=== PATIENT | female | born 1995 | race Caucasian/White ===

== ENCOUNTER 2020-05-10 12:36 | Inpatient (IN) | payer BC, MEDICAID ==
[~2020-05-10] VITALS: Ht 172.7 cm; Wt 67.3 kg
[2020-05-10] MEDS: LACTATED RINGERS 1,000 ML IV SCH (22:15)
[2020-05-10 22:30] VITALS: BP 118/70
[2020-05-10] MEDS ORDERED: FENTANYL PF 100 MCG/2ML IVPush PRN (22:30)
[2020-05-10] MEDS ORDERED: OXYTOCIN 30U/ 0.9% NaCL 500ML 500 ML IV ONE (22:30)
[2020-05-10] MEDS ORDERED: D5%-LACTATED RINGERS 1,000 ML IV SCH (22:30)
[2020-05-10] MEDS ORDERED: MISOPROSTOL 25 MCG TABLET VG PRN (22:30)
[2020-05-10] MEDS ORDERED: OXYTOCIN 30U/ 0.9% NaCL 500ML 500 ML IV PRN (22:30)
[2020-05-10] MEDS ORDERED: FENTANYL PF 100 MCG/2ML IV PRN (22:30)
[2020-05-10] MEDS: PENICILLIN GK 2,500,000 UNITS in DEXTROSE 5% 100 ML IVPB SCH (22:30)
[2020-05-10] MEDS ORDERED: TERBUTALINE 1 MG/ML, 1ML SQ PRN (22:30)
[2020-05-10] MEDS ORDERED: PENICILLIN GK 5,000,000 UNITS in DEXTROSE 5% 100 ML IVPB ONE (22:30)
[2020-05-10] MEDS ORDERED: TERBUTALINE 1 MG/ML, 1ML IVPush PRN (22:30)
[2020-05-10] MEDS ORDERED: OXYTOCIN 30U/ 0.9% NaCL 500ML 500 ML ONE (22:45)
[2020-05-10] MEDS ORDERED: CALCIUM CARBONATE 500 MG TAB.CHEW ONE (22:45)
[2020-05-10] MEDS ORDERED: MISOPROSTOL 25 MCG TABLET ONE (22:46)
[2020-05-10] MEDS ORDERED: NEWBORN KIT ONE (22:46)
[2020-05-10] MEDS: CALCIUM CARBONATE 500 MG TAB.CHEW PO PRN (23:02)
[2020-05-10 23:12] LABS: BASOPHILS % (AUTO) 0 % (0-1); EOSINOPHILS % (AUTO) 1 % (1-7); LYMPHOCYTES % (AUTO) 23 % (22-44); MONOCYTES % (AUTO) 10 % (2-9); NEUTROPHILS % (AUTO) 66 % (42-75); PLATELET COUNT 234 x10^3/uL (130-400); RED BLOOD COUNT 3.41 x10^6/uL (3.82-5.3); RED CELL DISTRIBUTION WIDTH 12.5 % (9.6-15.2)
[2020-05-10 23:19] LABS: MD NO
[2020-05-11] MEDS: PENICILLIN GK 2,500,000 UNITS in DEXTROSE 5% 100 ML IVPB SCH ×4 (02:30→17:27)
[2020-05-11] MEDS: CALCIUM CARBONATE 500 MG TAB.CHEW PO PRN ×3 (02:53→19:30)
[2020-05-11] MEDS ORDERED: CALCIUM CARBONATE 500 MG TAB.CHEW ONE ×3 (02:55→19:28)
[2020-05-11] MEDS ORDERED: MISOPROSTOL 25 MCG TABLET ONE (07:51)
[2020-05-11] MEDS ORDERED: MISOPROSTOL 25 MCG TABLET VG PRN (08:00)
[2020-05-11] MEDS ORDERED: LIDOCAINE 1%, 20ML ONE (09:41)
[2020-05-11] MEDS ORDERED: MISOPROSTOL 200 MCG TABLET ONE (09:41)
[2020-05-11] MEDS ORDERED: ONDANSETRON 2MG/ML, 2ML ONE ×2 (13:25→18:39)
[2020-05-11] MEDS: ONDANSETRON 2MG/ML, 2ML IVPush PRN ×2 (13:29→18:41)
[2020-05-11] MEDS ORDERED: FENTANYL PF 100 MCG/2ML ONE ×2 (13:47→14:31)
[2020-05-11] MEDS ORDERED: BUPIVACAINE 0.25% ONE (14:31)
[2020-05-11] MEDS ORDERED: FENTANYL/BUPIV./NS/PF 250 ML EPIDCONT ONE (14:32)
[2020-05-11] MEDS ORDERED: FENTANYL/BUPIV./NS/PF 250 ML EPIDCONT SCH (15:30)
[2020-05-11] MEDS ORDERED: ONDANSETRON 2MG/ML, 2ML IVPush PRN (15:30)
[2020-05-11] MEDS ORDERED: EPHEDRINE 50 MG/ML, 1ML IVPush PRN (15:30)
[2020-05-11] MEDS: LACTATED RINGERS 1,000 ML IV SCH ×2 (15:36→16:00)
[2020-05-11] MEDS ORDERED: LACTATED RINGERS 1,000 ML IVBOLUS PRN (16:00)
[2020-05-11] MEDS ORDERED: OXYTOCIN 30U/ 0.9% NaCL 500ML 500 ML ONE (21:51)
[2020-05-11] MEDS ORDERED: ONDANSETRON 2MG/ML, 2ML IV PRN (22:00)
[2020-05-11] MEDS ORDERED: SIMETHICONE 80 MG CHEW TAB PO PRN (22:00)
[2020-05-11] MEDS: OXYTOCIN 30U/ 0.9% NaCL 500ML 500 ML IV SCH (22:00)
[2020-05-11] MEDS ORDERED: MISOPROSTOL 200 MCG TABLET SL PRN (22:00)
[2020-05-11] MEDS ORDERED: IBUPROFEN 600 MG TABLET ONE ×2 (22:29)
[2020-05-11] MEDS ORDERED: IBUPROFEN 800 MG TABLET ONE (22:33)
[2020-05-11] MEDS: IBUPROFEN 800 MG TABLET PO PRN (22:39)
[2020-05-11] MEDS ORDERED: OXYcodone IR 5MG TABLET ONE (23:32)
[2020-05-11] MEDS: OXYcodone IR 5MG TABLET PO PRN (23:33)
[2020-05-12 00:10] VITALS: BP 127/71
[2020-05-12] MEDS: OXYcodone IR 5MG TABLET PO PRN ×4 (04:04→19:27)
[2020-05-12] MEDS: ACETAMINOPHEN 325 MG TABLET PO PRN ×3 (04:04→18:19)
[2020-05-12 04:20] VITALS: BP 118/74
[2020-05-12 06:47] LABS: BASOPHILS % (AUTO) 0 % (0-1); EOSINOPHILS % (AUTO) 0 % (1-7); LYMPHOCYTES % (AUTO) 13 % (22-44); MEAN CORPUSCULAR HEMOGLOBIN 31.5 pg (27.0-34.8); MEAN CORPUSCULAR HGB CONC 34.4 g/dL (32.4-35.8); MEAN PLATELET VOLUME 9.8 fL (7.4-10.4); MONOCYTES % (AUTO) 10 % (2-9); NEUTROPHILS % (AUTO) 77 % (42-75); PLATELET COUNT 213 x10^3/uL (130-400); RED CELL DISTRIBUTION WIDTH 12.5 % (9.6-15.2)
[2020-05-12 06:50] LABS: MD NO
[2020-05-12 07:39] VITALS: BP 114/67
[2020-05-12] MEDS: OXYTOCIN 30U/ 0.9% NaCL 500ML 500 ML IV SCH ×2 (08:00→18:00)
[2020-05-12] MEDS: FERROUS SULFATE 325 MG TABLET PO SCH ×2 (08:00→17:03)
[2020-05-12] MEDS: LACTATED RINGERS 1,000 ML IV SCH ×2 (08:00)
[2020-05-12] MEDS: DOCUSATE 100 MG CAPSULE PO PRN ×2 (08:01→19:26)
[2020-05-12] MEDS: IBUPROFEN 800 MG TABLET PO PRN ×2 (08:01→19:26)
[2020-05-12] MEDS: PRENATAL VIT/IRON/FA 1 EACH TABLET PO SCH (08:01)
[2020-05-12 12:20] VITALS: BP 118/72
[2020-05-12 15:50] VITALS: BP 121/78
[2020-05-12 19:56] VITALS: BP 114/68
[2020-05-13] MEDS: OXYcodone IR 5MG TABLET PO PRN ×4 (01:38→17:08)
[2020-05-13] MEDS: ACETAMINOPHEN 325 MG TABLET PO PRN ×4 (01:38→17:09)
[2020-05-13] MEDS: OXYTOCIN 30U/ 0.9% NaCL 500ML 500 ML IV SCH ×2 (04:00→14:00)
[2020-05-13] MEDS: IBUPROFEN 800 MG TABLET PO PRN ×2 (05:32→17:09)
[2020-05-13 07:30] VITALS: BP 116/77
[2020-05-13] MEDS ORDERED: IBUP-1222 PO (08:08)
[2020-05-13] MEDS ORDERED: DOCU-131 PO (08:08)
[2020-05-13] MEDS ORDERED: FERR325T18 PO (08:09)
[2020-05-13] MEDS: PRENATAL VIT/IRON/FA 1 EACH TABLET PO SCH (08:46)
[2020-05-13] MEDS: FERROUS SULFATE 325 MG TABLET PO SCH ×2 (08:47→17:08)
[2020-05-13] MEDS: DOCUSATE 100 MG CAPSULE PO PRN (08:47)
== END 2020-05-13 19:13 | disposition home or self-care (01) | DRG 806 ==
LOC: LDIP 22:07 → 2NW 05-11 23:45
PROVIDERS: ADMIT Student in an Organized Health Care Education/Training Program; ATTEND Student in an Organized Health Care Education/Training Program
PROC: 10E0XZZ Delivery of Products of Conception, External Approach (ICD-10-PCS; principal; 2020-05-11)
PROC: 10907ZC Drainage of Amniotic Fluid, Therapeutic from Products of Conception, Via Natural or Artificial Opening (ICD-10-PCS; 2020-05-11)
PROC: 10H07YZ Insertion of Other Device into Products of Conception, Via Natural or Artificial Opening (ICD-10-PCS; 2020-05-11)
PROC: 3E0P7VZ Introduction of Hormone into Female Reproductive, Via Natural or Artificial Opening (ICD-10-PCS; 2020-05-11)
PROC: 0UQKXZZ Repair Hymen, External Approach (ICD-10-PCS; 2020-05-11)
PROC: 0UQMXZZ Repair Vulva, External Approach (ICD-10-PCS; 2020-05-11)
PROC: 3E0R3BZ Introduction of Anesthetic Agent into Spinal Canal, Percutaneous Approach (ICD-10-PCS; 2020-05-11)
PROC: 00HU33Z Insertion of Infusion Device into Spinal Canal, Percutaneous Approach (ICD-10-PCS; 2020-05-11)
DX: O99.824 Streptococcus B carrier state complicating childbirth (principal); D62 Acute posthemorrhagic anemia; Z37.0 Single live birth; O99.344 Other mental disorders complicating childbirth; F32.9 Major depressive disorder, single episode, unspecified; F41.9 Anxiety disorder, unspecified; Z87.891 Personal history of nicotine dependence; Z3A.39 39 weeks gestation of pregnancy; O70.0 First degree perineal laceration during delivery; O99.03 Anemia complicating the puerperium; Z20.828 Contact with and (suspected) exposure to other viral communicable diseases
CPT/HCPCS: 36415; 62273; 85025; 86592; 86850; 86900; 87635; G0378; J2405; J2540; J3010; J2590; J7120